=== PATIENT | female | born 1950 | race Caucasian/White ===

== ENCOUNTER 2017-04-23 12:09 | Emergency (ER) | payer OTHER ==
[2017-04-23 12:25] VITALS: RESP 16; TEMP 98.5
--- NOTE | 2017-04-23 13:07 | EDPHY ---
H & P Stated Complaint: Fall onto back of head. No LOC. Is on xarelto Time Seen by Provider: 04/23/17 12:27 HPI/ROS: CHIEF COMPLAINT: Head injury HISTORY OF PRESENT ILLNESS: 66-year-old female presents to the emergency department after a injury a 2 hours prior to arrival. Patient lost her balance and fell backwards onto the concrete striking her head. Patient has peripheral neuropathy and has special shoes, she has problems with her balance. She denies any preceding chest pain or shortness of breath or dizziness prior to the fall. She does take Xarelto. Patient denies loss of consciousness, remembers the entire accident, no confusion. Son reports she is acting appropriate. Patient denies neck pain, back pain, any other symptoms or concerns. She reports a mild headache over her hematoma. No blurred vision. REVIEW OF SYSTEMS: A comprehensive 10 point review of systems is otherwise negative aside from elements mentioned in the history of present illness. Source: Patient Exam Limitations: No limitations - Personal History Current Tetanus/Diphtheria Vaccine: Yes Current Tetanus Diphtheria and Acellular Pertussis (TDAP): Yes - Medical/Surgical History Hx Asthma: No Hx Chronic Respiratory Disease: No Hx Diabetes: No Hx Cardiac Disease: No Hx Renal Disease: No Hx Cirrhosis: No Hx Alcoholism: No Hx HIV/AIDS: No Hx Splenectomy or Spleen Trauma: No Other PMH: PE's, DVT's, HTN, neuopathy,, PTSD - Social History Smoking Status: Never smoked - Physical Exam Exam: Physical Exam Gen: Alert and Oriented, NAD HEENT: Golf ball size hematoma to posterior occiput, no break in skin NECK: No C-spine tenderness to palpation CV: regular rate and regular rhythm PULM: CTAB, no wheezes BACK: No midline tenderness NEURO: Neurologically grossly intact EXTREMITIES: normal appearing SKIN: no rash or break in skin on exposed skin PSYCH: answers questions appropriately. Constitutional: Initial Vital Signs Temperature (C) 36.9 C 04/23/17 12:19 Heart Rate 74 04/23/17 12:19 Respiratory Rate 16 04/23/17 12:19 Blood Pressure 141/85 H 04/23/17 12:19 O2 Sat (%) 93 04/23/17 12:19 O2 Delivery Mode Room Air Allergies/Adverse Reactions: amoxicillin [Amoxicillin] Allergy (Severe, Verified 11/25/09 14:08) Anaphylaxis Penicillins Allergy (Severe, Verified 11/25/09 14:08) Anaphylaxis benzalkonium [Benzalkonium] Allergy (Mild, Verified 11/25/09 14:12) erythromycin base [Erythromycin Base] Allergy (Mild, Verified 04/23/17 12:18) gentamicin [Gentamicin] Allergy (Mild, Verified 04/23/17 12:18) ibuprofen [Ibuprofen] Allergy (Mild, Verified 04/23/17 12:18) Vomiting lidocaine [Lidocaine] Allergy (Mild, Verified 04/23/17 12:18) NSAIDS (Non-Steroidal Anti-Inflamma [Nsaids] Allergy (Mild, Verified 04/23/17 12 :18) Vomiting rofecoxib [From Vioxx] Allergy (Mild, Verified 04/23/17 12:18) Itching thyroid [From [place] Thyroid] Allergy (Mild, Verified 04/23/17 12:18) Other-Enter Comments cephalexin monohydrate [From Keflex] Allergy (Verified 04/23/17 12:18) UNK cortisone [Cortisone] Adverse Reaction (Mild, Verified 04/23/17 12:18) zolpidem tartrate [From Ambien] Adverse Reaction (Mild, Verified 04/23/17 12:18) NATURE THYROID Allergy (Mild, Uncoded 11/25/09 14:08) Home Medications: Medication Instructions Recorded AMPHOTERICIN B 11/25/09 Cymbalta 11/25/09 Fiournal 11/25/09 Hydrochlorothiazide 11/25/09 Neurontin 11/25/09 Xanax 11/25/09 Medical Decision Making - Diagnostics Imaging Results: Imaging Impressions Head CT 04/23/17 13:01 Impression: Negative noncontrast CT of the brain. Results called to. Felipe Fajardo PA-C at the time of the interpretation. Imaging: Discussed imaging studies w/ bingo caller Radiologist ED Course/Re-evaluation: This patient presents after a posterior head strike, on Xarelto Neurologic exam normal. CT brain ordered and is negative for intracranial hemorrhage. CHI precautions given. Differential Diagnosis: The differential diagnosis for the patient's head injury included but was not limited to concussion, skull fracture, intra-parenchymal contusion, subarachnoid , subdural and epidural hematoma. Departure - Departure Disposition: Home, Routine, Self-Care Clinical Impression: Scalp hematoma Qualifiers: Encounter type: initial encounter Qualified Code(s): S00.03XA - Contusion of scalp, initial encounter Minor head injury without loss of consciousness Qualifiers: Encounter type: initial encounter Qualified Code(s): S09.90XA - Unspecified injury of head, initial encounter Condition: Good Instructions: Head Injury (ED), Scalp Contusion in Adults (ED) Additional Instructions: Ice to your head, take Tylenol as needed for headache. Return to the emergency department for any forceful vomiting, confusion, altered gait, seizure-like activity, any new symptoms or concerns. Referrals: ONEYDA VALENZUELA [Other] - As per Instructions
[2017-04-23 14:09] VITALS: BP 139/91; PULSE 56; O2SAT 92
== END 2017-04-23 14:10 | disposition home or self-care (01) ==
DX: S00.03XA Contusion of scalp, initial encounter (principal); I10 Essential (primary) hypertension; Z79.01 Long term (current) use of anticoagulants; W18.09XA Striking against other object with subsequent fall, initial encounter